=== PATIENT | male | born 1980 | race Caucasian/White ===

== ENCOUNTER 2025-08-05 10:23 | Outpatient (CLI) | payer OTHER ==
[~2025-08-05] VITALS: Ht 172.1 cm; Wt 72.6 kg
[2025-08-05] MEDS: albuterol 2.5 MG/3 ML nebule NEB ONE (11:05)
[2025-08-05 11:06] VITALS: PULSE 68; RESP 16; O2SAT 98
[2025-08-05 11:17] VITALS: PULSE 67; RESP 15
--- NOTE | 2025-08-05 12:27 | PROCEDURE NOTE - Respiratory ---
Procedure Note-Respiratory Providers to CC Copies To 1: TESS GARCIA DO Procedure Name: This is a spirometry study dated August 05, 2025. The spirometry study was performed both before and after inhaled bronchodilator. Spirometry measurements: Both the forced vital capacity and the FEV1 measurements are normal. The FEV1 ratio is borderline reduced. All of the flow rate measurements are normal. After inhaled bronchodilator was administered, there is very minimal improvement in some of the flow rate measurements. Conclusion: Normal spirometry study. We have no previous studies for comparison. The patient's asthma appears to be in remission at this time. This patient should completely abstain from cigarette smoking. KRYSTAL ROBERT MD Aug 05, 2025 12:27
== END 2025-08-05 23:59 | disposition home or self-care (01) ==
LOC: RT 10:23
PROVIDERS: ATTEND Chiropractor
DX: J45.909 Unspecified asthma, uncomplicated (principal)
CPT/HCPCS: 94060; 94760